=== PATIENT | male | born 1995 | race Caucasian/White ===

== ENCOUNTER 2018-07-29 05:08 | Emergency (ER) | payer OTHER ==
--- NOTE | 2018-07-29 05:23 | EDPHY ---
H & P Stated Complaint: SOB, sore thorat, fever Time Seen by Provider: 07/29/18 05:22 HPI/ROS: HPI CHIEF COMPLAINT: Cough, wheezing. HISTORY OF PRESENT ILLNESS: Patient is a 22-year-old male, otherwise healthy without any significant medical history presents emergency room with cough and some faint wheezing bilaterally. States for the past 24-48 hours been sick with upper respiratory tract infection type symptoms and cough this rather nonproductive. Some faint wheezing bilaterally. Worsening cough last night and was unable to sleep. This is what prompted him to come to the emergency room. Denies any chest pain. Does state he has subjective fever. No vomiting or diarrhea. Past Medical History: Denies Past Surgical History: Denies Social History: Denies drug use alcohol tobacco. Family History: Noncontributory ROS REVIEW OF SYSTEMS: 10 Systems were reviewed and negative with the exception of the elements mentioned in the history of present illness. Exam Constitutional appears well nontoxic triage nursing summary reviewed, vital signs reviewed, awake/alert. Vital signs stable. Eyes normal conjunctivae and sclera, EOMI, PERRLA. HENT normal inspection, atraumatic, moist mucus membranes, no epistaxis, neck supple/ no meningismus, no raccoon eyes. Respiratory bronchitic cough on exam with faint wheezing bilaterally. No distress. Cardiovascular rate normal, regular rhythm, no murmur, no edema, distal pulses normal. Gastrointestinal soft, non-tender, no rebound, no guarding, normal bowel sounds, no distension, no pulsatile mass. Genitourinary no CVA tenderness. Musculoskeletal no midline vertebral tenderness, full range of motion, no calf swelling, no tenderness of extremities, no meningismus, good pulses, neurovascularly intact. Skin pink, warm, & dry, no rash, skin atraumatic. Neurologic awake, alert and oriented x 3, AAOx3, moves all 4 extremities equally, motor intact, sensory intact, CN II-XII intact, normal cerebellar, normal vision, normal speech. Psychiatric normal mood/affect. Heme/Lymph/Immune no lymphadenopathy. Differential Diagnosis: Includes but is not limited to in a particular order viral syndrome, URI, viral pneumonia, bacterial pneumonia, bronchitis, reactive airway disease Medical Decision Making: Plan for this patient two view chest x-ray, DuoNeb breathing treatment, prednisone. Re-evaluate Re-evaluation: Chest x-ray two view negative for acute cardiopulmonary disease. 6:30 a.m. Patient re-evaluated: Patient feeling much better after DuoNeb breathing treatment. Good air movement bilaterally. No significant wheezing . Slight cough. Room air saturation is 97%. No distress. He feels comfortable being discharged. Plan for this patient albuterol here 2 puffs every 4 hr as needed for shortness of breath cough And wheezing. Prednisone prescription. Return precautions discussed with the patient understands return emergency room if develops worsening shortness of breath, coughing, fever, not doing well Source: Patient - Personal History Current Tetanus/Diphtheria Vaccine: Unsure - Medical/Surgical History Hx Asthma: No Hx Chronic Respiratory Disease: No Hx Diabetes: No Hx Cardiac Disease: No Hx Renal Disease: No Hx Cirrhosis: No Hx Alcoholism: No Hx HIV/AIDS: No Hx Splenectomy or Spleen Trauma: No Other PMH: tonsilitis - Social History Smoking Status: Current some day smoker Constitutional: Initial Vital Signs Temperature (C) 37.3 C 07/29/18 05:13 Heart Rate 95 07/29/18 05:13 Respiratory Rate 16 07/29/18 05:13 Blood Pressure 126/75 H 07/29/18 05:13 O2 Sat (%) 95 07/29/18 05:13 O2 Delivery Mode Room Air Allergies/Adverse Reactions: No Known Allergies Allergy (Unverified 07/29/18 05:15) Home Medications: Medication Instructions Recorded predniSONE 60 mg PO DAILY #15 tab 07/29/18 Medical Decision Making - Data Points Medications Given: Discontinued Medications Albuterol/Ipratropium (Duoneb) 3 ml IH EDNOW ONE Stop: 07/29/18 05:26 Last Admin: 07/29/18 05:29 Dose: 3 ml Prednisone (Prednisone) 60 mg PO EDNOW ONE Stop: 07/29/18 05:26 Last Admin: 07/29/18 05:28 Dose: 60 mg Departure - Departure Disposition: Home, Routine, Self-Care Clinical Impression: Acute bronchitis Condition: Good Instructions: Acute Bronchitis (ED) Additional Instructions: 1. Make sure to drink lots of fluids. 2. Stay well-hydrated. 3. Albuterol inhaler 2 puffs as needed every 4 hr for cough and wheezing. 4. Return to the emergency room if worsening symptoms this includes worsening shortness of breath, fever, vomiting, not doing well Referrals: NONE *PRIMARY CARE P,. [Primary Care Provider] - As per Instructions [facility] [Clinic] - As per Instructions Prescriptions: predniSONE 60 mg PO DAILY #15 tab
[2018-07-29] MEDS ORDERED: IPRATROPIUM/ALBUTEROL 3 ML DEYVIAL IH ONE (05:25)
[2018-07-29] MEDS ORDERED: predniSONE 20 MG TAB PO ONE (05:25)
[2018-07-29] MEDS ORDERED: predniSONE 20 MG TAB ONE (05:27)
[2018-07-29 06:36] VITALS: BP 106/67
[2018-07-29] MEDS ORDERED: ALBUTEROL INH PREPACK MDI TAKEHOME ONE ×2 (06:37→06:38)
== END 2018-07-29 06:46 | disposition home or self-care (01) ==
DX: J20.9 Acute bronchitis, unspecified (principal); F17.200 Nicotine dependence, unspecified, uncomplicated
CPT/HCPCS: J7512